=== PATIENT | male | born 1950 | race Two or more races ===

== ENCOUNTER 2024-04-10 08:52 | Outpatient (AMB) | payer MEDICARE, MEDICAID, SELFPAY ==
--- NOTE | 2024-04-10 09:11 | PD.ORTHCLVIS ---
Vital signs 04/10/24 09:12 Height 1.68 m Height Method Stated Weight 84.113 kg Weight Measurement Method Standing Scale BMI 29.7 BP 154/88 H Blood Pressure Source Automatic Cuff Blood Pressure Location Right Upper Arm Position Sitting Respiration 19 Pulse 67 Pulse Source Monitor Temp 95.6 F L Temp Source Temporal Artery Scan Pulse Oximetry (%) 96 Oxygen Delivery Method Room Air Med/Allergies Allergies & Medications Allergies No Known Allergies Allergy (Verified 04/10/24 09:14) Medication Reconciliation acetaminophen 325 mg tablet (Tylenol) 325 mg PO QID PRN 03/27/24 [History Confirmed 04/10/24] meloxicam 7.5 mg tablet 7.5 mg PO QDAY #45 tabs 03/27/24 [Rx Confirmed 04/10/24] meloxicam 7.5 mg tablet 7.5 mg PO QDAY #45 tabs 03/27/24 [Rx Confirmed 04/10/24] Subjective Visit Visit for: follow up visit, x-rays and injections Immunization / Flu Flu Vaccine in the Last 12 Months: No Flu Vaccine Exclusion Criteria: No Exclusion Criteria History of Present Illness Chief complaint: XRAY/KNEE INJECTION FOLLOW UP Patient is a pleasant 74-year-old male with left knee pain and left knee arthritis. This knee pain has been going on for quite some time. He has tried anti-inflammatories but has not any injections or any other physical therapy. The pain is starting affect his quality life and happiness. He reports his right knee now hurts and he wants to get this evaluated with possible Pain Pain level (0-10): 9 Pain duration: ALL DAY Pain location: inside (medial) Pain quality: sharp and aching Pain timing: night and increases with activity Associated signs & symptoms: none Ambulatory data Ambulatory device: none Treatments Improvement with previous injections: No Improvement with PT: No Improvement with NSAIDS: no Review of Systems Review of Systems: All systems negative unless otherwise noted in HPI. Exam Exam Patient is in no acute distress and is cooperative with the examination today. Breathing is nonlabored. Patient has a normal mood and affect. Bilateral extremities were evaluated and demonstrates sensation intact to light touch. Palpable pedal pulses are present. No significant edema is present. Bilateral hips were examined. The patient has no pain with log roll of the hips. Internal rotation to 30 degrees and external rotation to 30 degrees is painless. Negative FADIR. Right knee was examined today. The right knee is in reasonable alignment. Range of motion from 0-120 degrees. Knee is stable to varus and valgus as well as AP translation with <5mm. Patient has a negative McMurrays. There is no pain with patellofemoral compression and no crepitus noted. The knee is nontender to palpation. Left knee was examined today. The left knee is in [varus] alignment. Range of motion from [0-115] degrees. Knee is stable to varus and valgus as well as AP translation with <5mm. Patient has a [negative] McMurrays. There is [no] pain with patellofemoral compression and [no] crepitus noted. The knee is [tender] to palpation [medially]. [facility] from [facility] imaging were personally reviewed by me. This demonstrates complete joint space obliteration medially. There are osteophytes present. Assessment and Plan Problem List (1) Arthritis of left knee: Status: Acute Plan: Patient is a pleasant 74-year-old male with left knee pain and left knee arthritis. He reports the right knee is starting to hurt him. He has [id number] arthritis on the left knee. We discussed cortisone injections as well as physical therapy and anti-inflammatories. He would like a cortisone injection as he is never had 1 before in his left knee. We will also get x-rays of the right knee. Recommend knee cortisone injection as patient would like to proceed with conservative treatment at this time. The risks and benefits of the procedure were reviewed with the patient and patient gave verbal consent to continue with the procedure. Procedure: performed by Dr. Duque Using sterile technique the left knee was thoroughly prepped with alcohol, and approximately 1 cc of Kenalog 40 mg/mL and 4 cc of 1% lidocaine was injected without resistance into the medial tibial femoral joint space. The patient tolerated the procedure. Plan See him back after his x-rays are done. We would likely do conservative treatment including an injection at the next visit Advanced Care Planning Discussion Advance care planning discussed with:: patient Office Procedures GNS Level of Care Nursing/Assessment Patient Status: Established Patient Nursing Assessment/Reassesment: Medication Reconciliation, Update PMH in EMR and Vital Signs Coordination of Care: Complex Care and Chronic Disease 1-5, Education Complex Pt/Fam, Consent,records obtained, informed consent and Staff clarify orders Established Patient Charge Established Patient Point Assignment: 90 Established Patient Point Charge: EP Level 3 (80-115) Surgical Proc/IM SQ injection Major Surgical Procedure: Yes (KNEE INJECTION) Medication Given Medication Given Medication Given: Yes Documented Dose Given: 4 Route: Infiitration Medication Given Medication Given Medication Given: Yes Documented Dose Given: 1 Route: Infiitration Office Meds Xylocaine 10 mg/mL (1 %) injection solution Performing Provider: Jason Duque MD Performing Location: [facility] Administered by: Jason Duque MD on 04/10/24 11:14 Dose Route Admin Location Dispensed Lot Number Expiration Date [facility] Firer Helper 20 mL Infiltration 20 mL [id number] [facility] triamcinolone acetonide 40 mg/mL suspension for injection Performing Provider: Jason Duque MD Performing Location: [facility] Administered by: Jason Duque MD on 04/10/24 11:14 Dose Route Admin Location Dispensed Lot Number Expiration Date [facility] Fire[employer] Helper 40 mg intra-articular 1 mL [id number] [employer] Past Medical History Past Medical History Have you ever been diagnosed with any of the following: Respiratory Problems Smoking: No Smoking Exposure: No
[2024-04-10 09:12] VITALS: BP 154/88; PULSE 67; RESP 19; TEMP 35.3; O2SAT 96; BMI 29.7
== END 2024-04-10 10:02 | disposition home or self-care (01) ==
LOC: HODSRG 08:52
PROVIDERS: Supervising Provider Orthopaedic Surgery Adult Reconstructive Orthopaedic Surgery; Visit Provider Orthopaedic Surgery Adult Reconstructive Orthopaedic Surgery
DX: M17.12 Unilateral primary osteoarthritis, left knee (principal); M25.562 Pain in left knee
CPT/HCPCS: 20610; 99213; J3301; J3490; G0463

== ENCOUNTER 2024-04-17 11:47 | Outpatient (AMB) | payer MEDICARE, MEDICAID, SELFPAY ==
--- NOTE | 2024-04-17 11:54 | ORTHONT_ITS ---
Vital signs 04/17/24 11:56 Height 1.68 m Height Method Stated BP 168/81 H Blood Pressure Source Automatic Cuff Blood Pressure Location Right Upper Arm Position Sitting Respiration 18 Pulse 68 Pulse Source Monitor Temp 97.1 F Temp Source Temporal Artery Scan Pulse Oximetry (%) 96 Oxygen Delivery Method Room Air Med/Allergies Allergies & Medications Allergies No Known Allergies Allergy (Verified 04/17/24 12:00) Medication Reconciliation acetaminophen 325 mg tablet (Tylenol) 325 mg PO QID PRN 03/27/24 [History Confirmed 04/17/24] meloxicam 7.5 mg tablet 7.5 mg PO QDAY #45 tabs 03/27/24 [Rx Confirmed 04/17/24] meloxicam 7.5 mg tablet 7.5 mg PO QDAY #45 tabs 03/27/24 [Rx Confirmed 04/17/24] Subjective Visit Visit for: follow up visit, x-rays and injections Immunization / Flu Flu Vaccine in the Last 12 Months: No Flu Vaccine Exclusion Criteria: No Exclusion Criteria History of Present Illness Chief complaint: XRAY/KNEE INJECTION FOLLOW UP Patient is a pleasant 74-year-old male with left knee pain and left knee arthritis. This knee pain has been going on for quite some time. He has tried anti-inflammatories but has not any injections or any other physical therapy. The pain is starting affect his quality life and happiness. He has significant vartus deformity. He reports his right knee now hurts and he wants to get this evaluated with possible Pain Pain level (0-10): 9 Pain duration: ALL DAY Pain location: inside (medial) Pain quality: sharp and aching Pain timing: night and increases with activity Associated signs & symptoms: none Ambulatory data Ambulatory device: none Treatments Improvement with previous injections: No Improvement with PT: No Improvement with NSAIDS: no Review of Systems Review of Systems: All systems negative unless otherwise noted in HPI. Exam Exam Patient is in no acute distress and is cooperative with the examination today. Breathing is nonlabored. Patient has a normal mood and affect. Bilateral extremities were evaluated and demonstrates sensation intact to light touch. Palpable pedal pulses are present. No significant edema is present. Bilateral hips were examined. The patient has no pain with log roll of the hips. Internal rotation to 30 degrees and external rotation to 30 degrees is painless. Negative FADIR. Right knee was examined today. The right knee is in reasonable alignment. Range of motion from 0-120 degrees. Knee is stable to varus and valgus as well as AP translation with <5mm. Patient has a negative McMurrays. There is no pain with patellofemoral compression and no crepitus noted. The knee is nontender to palpation. Left knee was examined today. The left knee is in [varus] alignment. Range of motion from [0-115] degrees. Knee is stable to varus and valgus as well as AP translation with <5mm. Patient has a [negative] McMurrays. There is [no] pain with patellofemoral compression and [no] crepitus noted. The knee is [tender] to palpation [medially]. X-rays from [facility] imaging were personally reviewed by me. This demonstrates complete joint space obliteration medially. There are osteophytes present. Assessment and Plan Problem List (1) Arthritis of left knee: Status: Acute Plan: Patient is a pleasant 74-year-old male with left knee pain and left knee arthritis. He reports the right knee is starting to hurt him. He has [id number] arthritis on the left knee. We discussed cortisone injections as well as physical therapy and anti-inflammatories. He would like a cortisone injection as he is never had 1 before in his left knee. He has significant right knee arthritis and wants to proceed with total knee replacement as he has failed conserative treatment. Plan The nature and purpose of the total knee replacement, alternative method(s) of treatment, the material risks involved, and the possibility of complications were fully explained to the patient. The patient does NOT have any of the following contraindications to TKA: - Active infection of the knee joint, OR - Active systemic bacteremia, OR - Active skin infection or open wound at surgical site, OR - Neuropathic arthritis, OR - Severe, rapidly progressive neurological disease, OR - Severe medical condition that makes risks of surgery outweigh the potential benefit. ?The patient was told the most common risks and complications associated with a total knee replacement include, but are not limited to: blood clots in the leg, stiffness, fatal pulmonary embolism, dislocation of the prosthesis, intraoperative and postoperative fractures of the femur or tibia, infection, failure of the prosthesis or grafting materials, complications from anesthesia, reactions to blood transfusions, postoperative leg length inequality, instability of the knee replacement, nerve damage or injury, vascular injury, delayed wound healing, infection, other injury or even . In addition, there are risks associated with anesthesia given during this operation. Also, the patient was told that after undergoing a total knee replacement there may still be persistent pain or disability. The patient was informed that the success of this operation in part depends upon the mechanical devices which are going to be implanted and that these devices can fail or malfunction, and may need to be repaired or replaced and there are no guarantees as to the longevity of this device or its parts and that it or its parts could fail prematurely. The importance of compliance with physical therapy was also discussed with the patient. The patient was also notified that during the course of surgery, there may be a need to use bone graft from donors, and that any bone graft used will be carefully screened for communicable diseases, including AIDS, hepatitis, Shahbaz-Creutzfeldt, or other diseases, but despite the screening procedures, there is a small chance that they could contract one of these diseases. Finally, the patient was asked to follow completely and fully with all advice and recommended treatments, and that recovery and ultimate outcome are affected by their compliance with recommended treatment. We discussed the risks, benefits and treatment alternatives, and the patient is interested in proceeding with surgery. We will try to set this up as expeditiously as possible. Advanced Care Planning Discussion Advance care planning discussed with:: patient Past Medical History Past Medical History Have you ever been diagnosed with any of the following: Respiratory Problems Smoking: No Smoking Exposure: No
[2024-04-17 11:56] VITALS: BP 168/81; PULSE 68; RESP 18; TEMP 36.2; O2SAT 96
--- NOTE | 2024-04-17 11:56 | PD.ORTHCLVIS ---
Vital signs 04/17/24 11:56 Height 1.68 m Height Method Stated BP 168/81 H Blood Pressure Source Automatic Cuff Blood Pressure Location Right Upper Arm Position Sitting Respiration 18 Pulse 68 Pulse Source Monitor Temp 97.1 F Temp Source Temporal Artery Scan Pulse Oximetry (%) 96 Oxygen Delivery Method Room Air Med/Allergies Allergies & Medications Allergies No Known Allergies Allergy (Verified 04/17/24 12:00) Medication Reconciliation acetaminophen 325 mg tablet (Tylenol) 325 mg PO QID PRN 03/27/24 [History Confirmed 04/17/24] meloxicam 7.5 mg tablet 7.5 mg PO QDAY #45 tabs 03/27/24 [Rx Confirmed 04/17/24] meloxicam 7.5 mg tablet 7.5 mg PO QDAY #45 tabs 03/27/24 [Rx Confirmed 04/17/24] Subjective Visit Visit for: follow up visit and knee Immunization / Flu Flu Vaccine in the Last 12 Months: No Flu Vaccine Exclusion Criteria: No Exclusion Criteria History of Present Illness Chief complaint: F/U XRAYS Pain Pain level (0-10): 10 Pain duration: ALL DAY Pain location: inside (medial), outside (lateral), anterior and posterior Pain quality: sharp, dull and aching Pain timing: increases with activity Associated signs & symptoms: numbness, weakness and stiffness Ambulatory data Ambulatory device: cane Treatments Improvement with previous injections: No Improvement with PT: No Improvement with NSAIDS: n/a Review of Systems Review of Systems: All systems negative unless otherwise noted in HPI. Assessment and Plan Advanced Care Planning Discussion Advance care planning discussed with:: patient Office Procedures GNS Level of Care Nursing/Assessment Patient Status: Established Patient Nursing Assessment/Reassesment: Medication Reconciliation, Update PMH in EMR and Vital Signs Coordination of Care: Complex Care and Chronic Disease 1-5, Education Complex Pt/Fam, Consent,records obtained, informed consent, 2-3 Insurance Autorizations needed, Lab and Imaging orders, Results/Orders obtained and Staff clarify orders Special Needs: Language special needs Established Patient Charge Established Patient Point Assignment: 130 Established Patient Point Charge: EP Level 4 (120-155) Past Medical History Past Medical History Have you ever been diagnosed with any of the following: Respiratory Problems Smoking: No Smoking Exposure: No
== END 2024-04-17 12:02 | disposition home or self-care (01) ==
PROVIDERS: Supervising Provider Orthopaedic Surgery Adult Reconstructive Orthopaedic Surgery; Visit Provider Orthopaedic Surgery Adult Reconstructive Orthopaedic Surgery
DX: M17.12 Unilateral primary osteoarthritis, left knee (principal); M25.562 Pain in left knee
CPT/HCPCS: 73564; 99214; G0463